=== PATIENT | female | born 1995 | race Caucasian/White ===

== ENCOUNTER 2024-10-10 07:13 | Outpatient (CLI) | payer BC ==
[2024-10-10] MEDS ORDERED: Iopamidol 300 61% 100 ML VIAL FS ONE (13:18)
== END 2024-10-10 07:14 | disposition home or self-care (01) ==
LOC: CSHCT 07:13
PROVIDERS: ATTEND Internal Medicine Gastroenterology
DX: R10.12 Left upper quadrant pain (principal); B27.90 Infectious mononucleosis, unspecified without complication; K58.9 Irritable bowel syndrome, unspecified
CPT/HCPCS: 74160; Q9967